=== PATIENT | female | born 1980 | race Caucasian/White ===

== ENCOUNTER → 2020-01-06 14:29 | Outpatient (CLI) | payer OTHER, SELFPAY ==
[2017-08-17 11:05] VITALS: BMI 31.0
[2020-01-06 15:39] LABS: Hematocrit 41.9 % (37-47); Hemoglobin 14.2 g/dL (12.0-15.0); Mean Corp Hgb Conc 33.9 g/dL (32-36); Mean Corpuscular Hgb 32.1 pg (27.0-32.0); Mean Corpuscular Volume 94.6 fL (81-99); Mean Platelet Vol. 9.6 fl (6.2-12.0); Platelet Count 212 K/mm3 (150-450); RBC Distribution Width CV 11.5 % (11.6-14.6); RBC Distribution Width SD 39.6 fl (35.1-43.9); Red Blood Count 4.43 M/mm3 (4.2-5.4); White Blood Count 6.8 K/mm3 (4.4-11.0)
[2020-01-06 16:46] LABS: Anion Gap 6 (5-15); BUN 12 mg/dL (7-18); CRP < 2.90 mg/L (0.0-3.0); Calcium,Total 9.1 mg/dL (8.5-10.1); Chloride 108 mmol/L (98-107); EST Glomerular Filtration Rate 99 mL/min (>60); Est Glom Filt Rate - Afr Amer 119 mL/min (>60); Glucose 123 mg/dL (74-106); Potassium 4.2 mmol/L (3.5-5.1); Sodium Level 142 mmol/L (136-145); Thyroid Stim Hormone (TSH) 0.53 uIU/mL (0.358-3.74)
[2020-01-06 17:16] LABS: Vitamin B12 439 pg/mL (211-911); Vitamin D,25 Hydroxy 25.6 ng/mL (29.95-100.01)
[2020-01-10 16:07] LABS: Endomysial Antibody IgA Negative (Negative)
[2020-01-10 17:44] LABS: Immunoglobulin A 193 mg/dL (87-352); t-Transglutaminase IgA <2 U/mL (0-3)
== END ==
PROVIDERS: PCP Family Medicine; Referring Provider Family Medicine; Visit Provider Family Medicine
DX: R10.9 Unspecified abdominal pain (principal); R19.7 Diarrhea, unspecified; R53.83 Other fatigue
CPT/HCPCS: 36415; 80048; 82306; 82607; 82784; 83516; 84443; 85027; 86140; 86255

== ENCOUNTER → 2020-03-27 14:53 | Outpatient (CLI) | payer OTHER, SELFPAY ==
[2017-08-17 11:05] VITALS: BMI 31.0
[2020-03-29 16:07] LABS: Endomysial Antibody IgA Negative (Negative)
[2020-03-29 16:31] LABS: Immunoglobulin A 186 mg/dL (87-352); t-Transglutaminase IgA <2 U/mL (0-3)
== END ==
PROVIDERS: PCP Family Medicine; Referring Provider Internal Medicine Gastroenterology; Visit Provider Internal Medicine Gastroenterology
DX: R10.9 Unspecified abdominal pain (principal)
CPT/HCPCS: 36415; 82784; 83516; 86255

== ENCOUNTER → 2020-10-11 | Outpatient (CLI) | payer OTHER, SELFPAY ==
[2017-08-17 11:05] VITALS: BMI 31.0
== END | disposition home or self-care (01) ==
PROVIDERS: PCP Family Medicine; Visit Provider Family Medicine
DX: Z20.828 Contact with and (suspected) exposure to other viral communicable diseases (principal)
CPT/HCPCS: 87635; U0003

== ENCOUNTER → 2020-10-31 12:20 | Outpatient (CLI) | payer OTHER, SELFPAY ==
[2017-08-17 11:05] VITALS: BMI 31.0
== END ==
PROVIDERS: PCP Family Medicine; Visit Provider Family Medicine
DX: Z20.828 Contact with and (suspected) exposure to other viral communicable diseases (principal)
CPT/HCPCS: 87635; U0003

== ENCOUNTER 2021-06-11 08:28 | Outpatient (RCR) | payer OTHER, SELFPAY | END 2021-06-23 23:59 | LOC: NS 08:28 | PROVIDERS: PCP Family Medicine; Visit Provider Family Medicine | DX: Z71.3 Dietary counseling and surveillance (principal); E66.9 Obesity, unspecified; Z68.26 Body mass index [BMI] 26.0-26.9, adult | CPT/HCPCS: 97802 ==

== ENCOUNTER 2021-07-09 09:05 | Outpatient (RCR) | payer OTHER, SELFPAY ==
[2017-08-17 11:05] VITALS: BMI 31.0
== END 2021-07-24 23:59 ==
LOC: NS 09:05
PROVIDERS: PCP Family Medicine; Visit Provider Family Medicine
DX: Z71.3 Dietary counseling and surveillance (principal); E66.9 Obesity, unspecified; Z68.26 Body mass index [BMI] 26.0-26.9, adult
CPT/HCPCS: 97803

== ENCOUNTER 2021-08-07 09:38 | Outpatient (RCR) | payer OTHER, SELFPAY | END 2021-08-23 23:59 | LOC: NS 09:38 | PROVIDERS: PCP Family Medicine; Visit Provider Family Medicine | DX: Z71.3 Dietary counseling and surveillance (principal); E66.9 Obesity, unspecified; Z68.26 Body mass index [BMI] 26.0-26.9, adult | CPT/HCPCS: 97803 ==

== ENCOUNTER 2021-09-17 15:00 | Outpatient (RCR) | payer SELFPAY | END 2021-09-23 23:59 | LOC: NS 15:00 | PROVIDERS: PCP Family Medicine; Visit Provider Family Medicine | DX: Z71.3 Dietary counseling and surveillance (principal); E66.9 Obesity, unspecified; Z68.26 Body mass index [BMI] 26.0-26.9, adult | CPT/HCPCS: 97803 ==

== ENCOUNTER 2021-10-23 08:30 | Outpatient (RCR) | payer SELFPAY | END 2021-10-23 23:59 | LOC: NS 08:30 | PROVIDERS: PCP Family Medicine; Visit Provider Family Medicine | DX: Z71.3 Dietary counseling and surveillance (principal); E66.9 Obesity, unspecified; Z68.26 Body mass index [BMI] 26.0-26.9, adult | CPT/HCPCS: 97803 ==

== ENCOUNTER 2021-11-20 08:46 | Outpatient (RCR) | payer SELFPAY | END 2021-11-23 23:59 | LOC: NS 08:46 | PROVIDERS: PCP Family Medicine; Visit Provider Family Medicine | DX: Z71.3 Dietary counseling and surveillance (principal); E66.9 Obesity, unspecified; Z68.26 Body mass index [BMI] 26.0-26.9, adult | CPT/HCPCS: 97803 ==

== ENCOUNTER 2021-12-17 11:17 | Outpatient (RCR) | payer BC, SELFPAY | END 2021-12-24 23:59 | LOC: NS 11:17 | PROVIDERS: PCP Family Medicine; Visit Provider Family Medicine | DX: Z71.3 Dietary counseling and surveillance (principal); E66.9 Obesity, unspecified; Z68.26 Body mass index [BMI] 26.0-26.9, adult | CPT/HCPCS: 97803 ==

== ENCOUNTER 2022-01-09 08:51 | Outpatient (RCR) | payer BC, SELFPAY | END 2022-01-21 23:59 | LOC: NS 08:51 | PROVIDERS: PCP Family Medicine; Referring Provider Family Medicine; Visit Provider Family Medicine | DX: Z71.3 Dietary counseling and surveillance (principal); E66.9 Obesity, unspecified; Z68.26 Body mass index [BMI] 26.0-26.9, adult | CPT/HCPCS: 97803 ==

== ENCOUNTER 2022-02-12 09:00 | Outpatient (RCR) | payer BC, SELFPAY | END 2022-02-21 23:59 | LOC: NS 09:00 | PROVIDERS: PCP Family Medicine; Referring Provider Family Medicine; Visit Provider Family Medicine | DX: Z71.3 Dietary counseling and surveillance (principal); E66.9 Obesity, unspecified; Z68.26 Body mass index [BMI] 26.0-26.9, adult | CPT/HCPCS: 97803 ==

== ENCOUNTER 2022-03-25 09:21 | Outpatient (RCR) | payer BC, SELFPAY | END 2022-04-23 23:59 | LOC: NS 09:21 | PROVIDERS: PCP Family Medicine; Referring Provider Family Medicine; Visit Provider Family Medicine | DX: Z71.3 Dietary counseling and surveillance (principal); E66.9 Obesity, unspecified; Z68.26 Body mass index [BMI] 26.0-26.9, adult | CPT/HCPCS: 97803 ==

== ENCOUNTER → 2022-12-11 | Outpatient (CLI) | payer OTHER, SELFPAY ==
[2022-12-11 17:58] LABS: Absolute Lymphocyte Count 2.22 X10^3/uL (0.83-4.51); Absolute Neutrophil Count 3.9 X10^3/uL (2.0-7.7); Basophil# 0.06 X10^3/uL; Basophil% 0.9 % (0-1); Eosinophil# 0.17 X10^3/uL; Eosinophils% 2.5 % (0-5); Hematocrit 39.2 % (37-47); Hemoglobin 13.2 g/dL (12.0-15.0); Lymphocyte # 2.22 X10^3/ul (0.83-4.51); Lymphocyte % 32.8 % (19-41); Mean Corp Hgb Conc 33.7 g/dL (32-36); Mean Corpuscular Hgb 32.1 pg (27.0-32.0); Mean Corpuscular Volume 95.4 fL (81-99); Mean Platelet Vol. 9.6 fl (6.2-12.0); Monocyte# 0.41 X10^3/uL; Monocyte% 6.1 % (0-10); NRBC Flagged by Analyzer 0 % (0-5); Neutrophil # 3.88 X10^3/uL (2.7-7.7); Neutrophil % 57.4 % (47-70); Platelet Count 220 K/mm3 (150-450); RBC Distribution Width CV 11.6 % (11.6-14.6); RBC Distribution Width SD 40.4 fl (35.1-43.9); Red Blood Count 4.11 M/mm3 (4.2-5.4); White Blood Count 6.8 K/mm3 (4.4-11.0)
[2022-12-11 18:56] LABS: Anion Gap 6 (5-15); BUN 9 mg/dL (7-18); BUN/Creat Ratio 13.9 RATIO (10-20); Calcium,Total 8.5 mg/dL (8.5-10.1); Chloride 106 mmol/L (98-107); Creatinine, Serum 0.65 mg/dL (0.55-1.02); EST Glomerular Filtration Rate 107 mL/min (>60); Est Glom Filt Rate - Afr Amer 130 mL/min (>60); Glucose 87 mg/dL (74-106); Potassium 3.9 mmol/L (3.5-5.1); Sodium Level 139 mmol/L (136-145); Troponin-I HS < 3 pg/mL (3.0-54.0)
== END | disposition home or self-care (01) ==
LOC: MFPLAB 17:03
PROVIDERS: PCP Family Medicine; Visit Provider Family Medicine
DX: R07.9 Chest pain, unspecified (principal)
CPT/HCPCS: 36415; 80048; 84484; 85025

== ENCOUNTER → 2023-01-06 | Outpatient (CLI) | payer OTHER, SELFPAY ==
--- NOTE | 2023-01-06 12:06 | STRESSREP ---
Stress Test Report Exercise myocardial perfusion stress test. 42-year-old lady with a history of chest pain Stress protocol: Resting EKG demonstrates sinus bradycardia with a rate of 56 bpm resting blood pressure is 122/88 mmHg. The patient exercised according to the regular Lazaro protocol for a total duration of 10 minutes and 31 seconds completing 1 minute and 31 seconds into stage IV of the Lazaro protocol attaining a maximum heart rate of 162 bpm which was 90% of maximum predicted heart rate; the maximum workload was 13.4 metabolic equivalents. At rest there were no ST or T wave changes noted to suggest ischemia and at peak exercise upsloping ST changes only were noted which did not meet the criteria for ischemia. No clinical angina was noted the test was terminated due to the target heart rate being achieved/fatigue. The peak blood pressure was 162/58 mmHg. Rate-pressure product was 23,600. Myocardial perfusion protocol. 11.6 mCi of technetium 99m sestamibi was injected at rest. The patient exercised according to regular Lazaro protocol for total duration of 10 minutes and 31 seconds and at peak exercise 33.2 mCi of technetium 99m sestamibi was injected stress images were obtained stress and rest images were reconstructed in comparing the short axis vertical long and horizontal long axis. Gated images were also obtained. Perfusion SPECT analysis: Review of the stress images demonstrate normal uptake of tracer noted in all areas of the myocardium. The resting images similarly demonstrate normal uptake of tracer noted in all areas of the myocardium. No areas of reversibility are noted to suggest ischemia no previous infarct was noted. Gated SPECT analysis: The gated ejection fraction is 73%. Conclusion: Normal exercise myocardial perfusion stress test at a high workload Preserved ejection fraction.
== END | disposition home or self-care (01) ==
PROVIDERS: PCP Family Medicine; Referring Provider Family Medicine; Visit Provider Family Medicine
DX: R07.9 Chest pain, unspecified (principal)
CPT/HCPCS: 78452; 93017; A9500; A4216

== ENCOUNTER 2025-11-14 10:00 | Outpatient (RCR) | payer OTHER, SELFPAY ==
--- NOTE | 2025-08-16 17:24 | HP.PTEVAL ---
Patient's Visit Information Visit Information Visit Information: KEYLA WATTS is a 44 year old F referred to Physical Therapy by JORDY Short with a diagnosis of Stress incontinence N39.3, Rectocele N81.6. Date of Evaluation: 08/16/25 Physical Therapist: Daylin Bolden Visit Plan Frequency: 1x/Week Duration: 3 Months Plan: Keyla would benefit from skilled PT intervention to address her stress incontinence , rectocele and pelvic floor control. She has moderate tightness and pelvic floor weakness which is affecting her control. We will utilize manual therapy of her pelvic floor in our sessions along with pelvic floor strengthening. Evaluate breathing mechanics, continue work on right lumbar, piriformis, T/L junction, check for right upslip, continue pelvic floor releases but worse on left side. Add week 2 . Also started her on supine piriformis stretch and press ups for hip pain to see if it helps? Subjective Subjective: Holding gas in or stool is hard. End of a long day, after straining on the toilet, she can feel a heaviness. Running, jumping, coughing, sneezing she crosses her legs and not a full blown accident but definite leakage. She uses one pantiliner a day. No urge incontinence. She drinks water, coke, coffee which increases her urgency. She feels urgency in less than an hour and urinating every hour. She gets there without leaking. She doesn't have trouble getting up at night. No pain . No pain with penetration. She has a lot of hip tightness. Hip pain can wake her up at times at night. Once she gets moving she is fine. Her main goal is to address the leakage. 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 She works 4-5 days a week. Her goal is to address the leaking conservatively without surgery. She has 2 kids. 8 and 13. Pain Hip pain: Pain Intensity (Out of 10): 3 Pain Intensity Range: 4 Objective Objective: LAYCOCK 3-/3/2/2 SOME DIFFICULTY RELAXING BETWEEN CONTRACTIONS RECTOCELE 2 CYSTOCELE 1 MILD, MODERATE PELVIC FLOOR TIGHTNESS BILTERALLY BUT WORSE ON LEFT SIDE LAYER 2 AND MILD SUPERIORLY AT URETHRAL SPHINCTER Good anal wink Right lumbar rotations and pelvic upslip Moderate lumbar tightness Did not evaluate breathing mechanics today Goals Goal 1:: Keyla will be able to hold back gas avoiding embarrassment. Goal Time Frame: 8-12 Weeks Goal 2:: Keyla will be able to cough or sneeze without leaking. Goal Time Frame: 8-12 Weeks Goal 3:: Keyla will feel control when a sudden urge to have a bowel movement comes on. Goal Time Frame: 6-8 Weeks Rehabilitation Potential Physical Therapy Diagnosis: Hip pain M25.55 Rehabilitation Potential: Excellent Anticipated Interventions Patient/Client Instruction: Educate patient on: Condition and Plan of Care For the Purpose of:: To decrease pain, To improve muscle performance and motor function, To improve health and function and To improve self management Therapeutic Exercise to Include: Strength training, Neuromotor development and Relaxation training For the Purpose of:: To improve muscle performance and motor function, To improve health and function and To improve self management Manual Therapy Techniques to Include: Trigger point massage, Mobilization and Soft tissue mobilization For the Purpose of:: To decrease pain, To improve muscle performance and motor function, To improve health and function and To improve self management Text: Thank you for the opportunity to evaluate your patient. For Medicare and Medicare HMO plans, please review the plan of care and approve it. It will need to be FAXED BACK to us at [phone] for Medicare purposes. For Medicare only, by signing this I certify the plan of care. Please let me know if there are questions or concerns regarding this plan of care. Physician Signature: Date:
--- NOTE | 2025-11-14 11:04 | HP.PTDCSUM ---
Discharge Summary D/C summary: It has been my pleasure to treat KEYLA WATTS referred by Keyla Mayer, [facility], with the diagnosis of Stress incontinence N39.3, Rectocele N81.6 for a total of 8 visit(s). Discharge Date: 11/14/25 Please see the following information for a summary of their discharge status. Subjective Subjective: She reports about 75% improvement overall since starting pelvic floor therapy. Her goal was to address the leakage and manage the prolapses conservatively which she feels she has accomplished. Pain Hip pain: Pain Intensity (Out of 10): 2 Objective Objective/Function: LAYCOCK 3-/ Rectocele 2, Cystocele 1- Cystocele mildly improved with pelvic floor therapy but no significant change in her rectocele. Improvement in her pelvic floor strength and pelvic floor tightness. Overall wonderful progress and patient is pleased with her response to treatment. Pelvic floor distress inventory score low at 41. Goals Goal 1:: Keyla will be able to hold back gas avoiding embarrassment. 11/14/25 50-60% improved. Goal Progress: Progressing Goal 2:: Keyla will be able to cough or sneeze without leaking. 11/14/25 75% improved. Goal Progress: Progressing Goal 3:: Keyla will feel control when a sudden urge to have a bowel movement comes on. 11/14/25 50% improved. Plan Plan: D/ C from PT. Patient will continue the exercises on her own at home. D/C Information d/c sentence: If there are questions or concerns regarding this patient's physical therapy, please feel free to call me at [phone]. Thank you for the referral of this patient. Sincerely, Daylin Bolden
== END 2025-11-14 13:50 | disposition home or self-care (01) ==
LOC: PT 10:00
PROVIDERS: PCP Family Medicine; Referring Provider Nurse Practitioner Women's Health; Visit Provider Nurse Practitioner Women's Health
DX: N81.6 Rectocele (principal); N39.3 Stress incontinence (female) (male)
CPT/HCPCS: 97110; 97112; 97140; 97162